=== PATIENT | female | born 1990 | race Hispanic/Latino ===

== ENCOUNTER 2018-12-10 12:00 | Observation (INO) | payer BC, OTHER ==
[~2018-12-10] VITALS: Ht 149.9 cm; Wt 61.7 kg
[2018-12-10] VITALS (17 sets, daily range): BP systolic 107–132; BP diastolic 56–85
[2018-12-10 12:30] LABS: APPEARANCE,URINE CLOUDY (CLEAR); BILIRUBIN,URINE SMALL (NEGATIVE); COLOR,URINE YELLOW (YELLOW); GLUCOSE, URINE (UA) NEGATIVE (NEGATIVE); KETONES,URINE >=80 mg/dL (NEGATIVE); LEUKOCYTE ESTERASE ,URINE TRACE (NEGATIVE); NITRATE,URINE NEGATIVE (NEGATIVE); OCCULT BLOOD,URINE LARGE (NEGATIVE); PROTEIN,URINE 100 mg/dL (NEGATIVE)
[2018-12-10] MEDS ORDERED: MORPHINE SULFATE 2 MG/ML 1ML SYG ONE (12:41)
[2018-12-10] MEDS ORDERED: ONDANSETRON HCL 4 MG/2 ML VIAL ONE ×2 (12:41→19:20)
[2018-12-10 12:52] LABS: BACTERIA,URINE Moderate /HPF (None Seen); MUCUS,URINE Few LPF (None Seen); RBC,URINE TNTC /HPF (0-1); SQUAMOUS EPITHELIAL CELL,UR Moderate /HPF (0-2); WBC,URINE 0-1 /HPF (0-1)
[2018-12-10 13:02] LABS: HCG,QUAL RESULT POSITIVE (NEGATIVE)
[2018-12-10 13:06] LABS: BASOPHILS % (AUTO) 0.3 % (0.0-5.0); EOSINOPHILS % (AUTO) 0.1 % (0.0-8.0); HEMATOCRIT 35.6 % (36-48); LYMPHOCYTES % (AUTO) 8.6 % (21.0-51.0); MEAN CORPUSCULAR HEMOGLOBIN 29.2 pg (27.0-33.0); MEAN CORPUSCULAR HGB CONC 32.8 g/dL (32.0-36.0); MEAN CORPUSCULAR VOLUME 89.1 fL (79-99); MONOCYTES % (AUTO) 3.3 % (3.0-13.0); NEUTROPHILS % (AUTO) 87.7 % (40.0-77.0); PLATELET COUNT (AUTO) 273 K/uL (130-400); RED CELL DISTRIBUTION WIDTH 14.7 % (11.0-15.5); WHITE BLOOD COUNT (AUTO) 11.7 K/uL (4.8-10.8)
[2018-12-10 13:14] LABS: CREATININE 0.5 mg/dL (0.5-1.5)
[2018-12-10 13:20] LABS: INR 1.04 (0.85-1.15); PARTIAL THROMBOPLASTIN TIME 23.9 SEC (26.3-35.5); PROTHROMBIN TIME 10.9 SEC (9.6-11.6)
[2018-12-10] MEDS ORDERED: DEXTROSE 5 %-0.45 % NACL 1,000 ML IV SCH ×2 (15:15→22:30)
[2018-12-10] MEDS ORDERED: PREN-154 PO (15:51)
--- NOTE | 2018-12-10 16:45 | NUR ---
DR. FISCHER AT BEDSIDE TO ASSESS AND DO PELVIC EXAM. POC DISCUSSED. ORDERS RECEIVED FOR EUA, D&C, DX LAPAROSCOPY, POSSIBLE LAPAROTOMY, INDICATED PROCEDURES.
--- NOTE | 2018-12-10 17:40 | NUR ---
PT TAKEN BY BED TO HOLDING AREA FOR SURGERY.
[2018-12-10] MEDS ORDERED: FENTANYL CITRATE PF 50 MCG/1 ML 2ML VIAL ONE ×2 (18:08→19:05)
[2018-12-10] MEDS ORDERED: PROPOFOL 10 MG/ML 20ML VIAL IV ONE (18:08)
[2018-12-10] MEDS ORDERED: MIDAZOLAM HCL 1 MG/ML 2ML VIAL ONE (18:08)
[2018-12-10] MEDS ORDERED: ROCURONIUM 10MG/1ML SYR 10 MG/ML ML ONE (18:14)
[2018-12-10] MEDS ORDERED: GLYCOPYRROLATE 1 MG/5 ML SYRINGE ONE (19:00)
[2018-12-10] MEDS ORDERED: NEOSTIGMINE 5MG/5ML SYR IV ONE (19:01)
[2018-12-10] MEDS ORDERED: MEPERIDINE-PF 25 MG/ML SYG ONE ×2 (19:36→19:48)
--- NOTE | 2018-12-10 20:35 | NUR ---
STATUS RECEIVED PT FROM PACU, DROWSY, AROUSES EASILY ABD SOFT ,INCISIONS DRY/INTACT Addendum: 12/11/18 at 0120 by SHAZIA CRONIN LVN Amended: Links added.
[2018-12-10] MEDS ORDERED: MEPERIDINE-PF 50 MG/ML SYG IM PRN (22:30)
[2018-12-10] MEDS ORDERED: PROMETHAZINE HCL 25 MG/ML 1ML AMPULE IM PRN (22:30)
[2018-12-10] MEDS ORDERED: ACETAMINOPHEN-CODEINE 300/30MG TAB PO PRN (22:30)
--- NOTE | 2018-12-11 01:45 | NUR ---
ACTIVITY ASSISTED UP TO SIDE OF BED, TOLERATED WELL, UP TO BR, VOIDED W/O DIFFICULTY, RETURNED TO BED Addendum: 12/11/18 at 0221 by SHAZIA CRONIN LVN Amended: Links added.
[2018-12-11 03:48] VITALS: BP 96/62
[2018-12-11 07:03] LABS: HEMATOCRIT 25.5 % (36-48); MEAN CORPUSCULAR HEMOGLOBIN 30.8 pg (27.0-33.0); MEAN CORPUSCULAR HGB CONC 34.5 g/dL (32.0-36.0); MEAN CORPUSCULAR VOLUME 89.3 fL (79-99); PLATELET COUNT (AUTO) 195 K/uL (130-400); RED BLOOD CELL COUNT(AUTO) 2.86 MIL/uL (4.00-5.50); RED CELL DISTRIBUTION WIDTH 14.7 % (11.0-15.5); WHITE BLOOD COUNT (AUTO) 6.9 K/uL (4.8-10.8)
[2018-12-11 07:43] VITALS: BP 110/73
--- NOTE | 2018-12-11 08:29 | NUR ---
ROUNDS DR. FISCHER ROUNDING ON PATIENT AT THIS TIME.
[2018-12-11 11:15] VITALS: BP 98/60
--- NOTE | 2018-12-11 12:20 | NUR ---
INSTRUCTIONS DISCHARGE INSTRUCTIONS READ AND EXPLAINED TO PATIENT. QUESTIONS INVITED AND ANSWERED. PRESCRIPTION FOR TYLENOL #3 AND FERROUS SULFATE 325MG HANDED TO PATIENT. NO COMPLAINTS OR CONCERNS ADDRESSED FROM PATIENT.
--- NOTE | 2018-12-11 13:15 | NUR ---
DISCHARGE PATIENT LEFT UNIT VIA WHEELCHAIR WITH BELONGINGS IN HAND ACCOMPANIED BY FAMILY. PERSONAL VEHICLE USED FOR TRANSPORTATION. NO COMPLAINTS OR CONCERNS ADDRESSED FROM PATIENT ON DISCHARGE.
== END 2018-12-11 13:15 | disposition home or self-care (01) ==
LOC: EDH 12:00 → EDHIP 14:32 → WSH 15:10
PROVIDERS: ADMIT Obstetrics & Gynecology; ATTEND Obstetrics & Gynecology
DX: O00.90 Unspecified ectopic pregnancy without intrauterine pregnancy (principal); Z90.49 Acquired absence of other specified parts of digestive tract; Z79.01 Long term (current) use of anticoagulants
CPT/HCPCS: 36415 ×2; 59151; 76817; 80048; 81001; 81025; 84702; 85025; 85027; 85610; 85730; 86850; 86900; 86901; 86922; 96372; 99291; A4215; A4351; A4649 ×2; C1769 ×2; G0168; G0378 ×23; J2175 ×3; J2250; J2405 ×2; J2550; J2704; J2710; J3010 ×2; J3490; J7030